=== PATIENT | female | born 1970 | race American Indian/Alaskan Native ===

== ENCOUNTER 2019-08-03 03:43 | Emergency (ER) | payer MEDICAID ==
[2019-08-03 04:03] VITALS: BP 112/53
--- NOTE | 2019-08-03 04:50 | Emergency Department Report ---
- General Chief complaint: Skin/Abscess/Foreign Body Stated complaint: BOIL ON VAG AREA/PAIN Time Seen by Provider: 08/03/19 04:26 Source: patient Mode of arrival: Ambulatory Limitations: No Limitations - History of Present Illness Initial comments: patient is a 49-year-old female presents emergency room with complaints of a boil to the pubic area that began 4 days ago. She states that 4 days ago she was shaving and accidentally cut herself and then began to form a boil in the area. She denies any drainage. She states she has been using warm compresses without much relief. She denies any fever, vomiting, diarrhea. She denies any past medical history or allergies medications. She states that she went through menopause. - Related Data Previous Rx's Medication Instructions Recorded Last Taken Type HYDROcodone/APAP 5-325 [[place] 1 each PO Q6HR PRN #20 tablet 07/07/14 Unknown Rx 5-325 mg TAB] Cyclobenzaprine [Flexeril 10mg] 10 mg PO Q8H PRN #21 tablet 09/01/14 Unknown Rx HYDROcodone/APAP 5-325 [[place] 1 each PO Q6HR PRN #20 tablet 09/01/14 Unknown Rx 5-325 mg TAB] Acetaminophen/Codeine [Tylenol 1 tab PO Q6H PRN #10 tab 08/03/19 Unknown Rx /Codeine # 3 tab] Fluconazole [Diflucan TAB] 150 mg PO ONCE #1 tablet 08/03/19 Unknown Rx Sulfamethoxazole/Trimethoprim 2 each PO BID 7 Days #28 tablet 08/03/19 Unknown Rx [Bactrim DS TAB] Allergies Allergy/AdvReac Type Severity Reaction Status Date / Time No Known Allergies Allergy Unverified 07/07/14 14:38 Abscess Boil HPI - HPI Chief Complaint: Skin/Abscess/Foreign Body Stated Complaint: BOIL ON VAG AREA/PAIN Time Seen by Provider: 08/03/19 04:26 Home Medications: Previous Rx's Medication Instructions Recorded Last Taken Type HYDROcodone/APAP 5-325 [[place] 1 each PO Q6HR PRN #20 tablet 07/07/14 Unknown Rx 5-325 mg TAB] Cyclobenzaprine [Flexeril 10mg] 10 mg PO Q8H PRN #21 tablet 09/01/14 Unknown Rx HYDROcodone/APAP 5-325 [[place] 1 each PO Q6HR PRN #20 tablet 09/01/14 Unknown Rx 5-325 mg TAB] Acetaminophen/Codeine [Tylenol 1 tab PO Q6H PRN #10 tab 08/03/19 Unknown Rx /Codeine # 3 tab] Fluconazole [Diflucan TAB] 150 mg PO ONCE #1 tablet 08/03/19 Unknown Rx Sulfamethoxazole/Trimethoprim 2 each PO BID 7 Days #28 tablet 08/03/19 Unknown Rx [Bactrim DS TAB] Allergies/Adverse Reactions: Allergies Allergy/AdvReac Type Severity Reaction Status Date / Time No Known Allergies Allergy Unverified 07/07/14 14:38 ED Review of Systems ROS: Stated complaint: BOIL ON VAG AREA/PAIN Other details as noted in HPI Comment: All other systems reviewed and negative ED Past Medical Hx - Past Medical History Previous Medical History?: No - Surgical History Past Surgical History?: Yes Additional Surgical History: . tubal ligation - Social History Smoking Status: Former Smoker Substance Use Type: None - Medications Home Medications: Home Medications Medication Instructions Recorded Confirmed Last Taken Type HYDROcodone/APAP 5-325 [[place] 1 each PO Q6HR PRN #20 tablet 07/07/14 Unknown Rx 5-325 mg TAB] Cyclobenzaprine [Flexeril 10mg] 10 mg PO Q8H PRN #21 tablet 09/01/14 Unknown Rx HYDROcodone/APAP 5-325 [[place] 1 each PO Q6HR PRN #20 tablet 09/01/14 Unknown Rx 5-325 mg TAB] Acetaminophen/Codeine [Tylenol 1 tab PO Q6H PRN #10 tab 08/03/19 Unknown Rx /Codeine # 3 tab] Fluconazole [Diflucan TAB] 150 mg PO ONCE #1 tablet 08/03/19 Unknown Rx Sulfamethoxazole/Trimethoprim 2 each PO BID 7 Days #28 tablet 08/03/19 Unknown Rx [Bactrim DS TAB] ED Physical Exam - General Limitations: No Limitations General appearance: alert, in no apparent distress - Head Head exam: Present: atraumatic, normocephalic - Eye Eye exam: Present: normal appearance - ENT ENT exam: Present: mucous membranes moist - Respiratory Respiratory exam: Present: normal lung sounds bilaterally. Absent: respiratory distress, wheezes, rales, rhonchi, stridor, chest wall tenderness, accessory muscle use, decreased breath sounds, prolonged expiratory - Cardiovascular Cardiovascular Exam: Present: regular rate, normal rhythm, normal heart sounds. Absent: systolic murmur, diastolic murmur, rubs, gallop - External exam: Present: other (5 cm area of induration, erythema, increased warmth to the right side of the mons pubis with a 0.5 cm abrasion, there is no fluctuance, no drainage, not able to manually express draiange, no blistering, no necrosis, no streaking of the skin, sec accountant: KAREN Chowdary) - Neurological Exam Neurological exam: Present: alert, oriented X3 - Psychiatric Psychiatric exam: Present: normal affect, normal mood - Skin Skin exam: Present: warm, dry ED Course Vital Signs 08/03/19 03:53 Temperature 98.7 F Pulse Rate 81 Respiratory 18 Rate Blood Pressure 112/53 O2 Sat by Pulse 99 Oximetry ED Medical Decision Making - Medical Decision Making patient is a 49-year-old female presents emergency room with complaints of a boil to the pubic area that began 4 days ago. She states that 4 days ago she was shaving and accidentally cut herself and then began to form a boil in the area. She denies any drainage. She states she has been using warm compresses without much relief. She denies any fever, vomiting, diarrhea. She denies any past medical history or allergies medications. She states that she went through menopause. vitals are normal. on exam: 5 cm area of induration, erythema, increased warmth to the right side of the mons pubis with a 0.5 cm abrasion, there is no fluctuance, no drainage, not able to manually express draiange, no blistering, no necrosis, no streaking of the skin, sec accountant: KAREN Chowdary. There is no drainable abscess at this time, examination consistent with cellulitis with indurated skin. pt given prescription for Bactrim and Tylenol with codeine. Patient requested a prescription for Diflucan due to antibiotic use to prevent yeast infection. advised pt please take medication as prescribed. Do not drive or operate heavy machinery while taking pain medication. Please use warm compresses 2-3 times a day. Please follow-up with your primary care doctor in the next 2-3 days to have the area reexamined. There is no drainable abscess at this time but if antibiotics do not improve the area and the area starts to become larger or draining may have to have a drainage procedure performed. Return to the emergency room for any new or worsening symptoms. - Differential Diagnosis cellulitis, folliculitis, abscess, carbuncle, sebaceous cyst, bartholins Critical care attestation.: If time is entered above; I have spent that time in minutes in the direct care of this critically ill patient, excluding procedure time. ED Disposition Clinical Impression: Cellulitis Qualifiers: Site of cellulitis: trunk Site of cellulitis of trunk: groin Qualified Code(s): L03.314 - Cellulitis of groin Disposition: - TO HOME OR SELFCARE Is pt being admited?: No Does the pt Need Aspirin: No Condition: Stable Instructions: Cellulitis (ED) Additional Instructions: please take medication as prescribed. Do not drive or operate heavy machinery while taking pain medication. Please use warm compresses 2-3 times a day. Please follow-up with your primary care doctor in the next 2-3 days to have the area reexamined. There is no drainable abscess at this time but if antibiotics do not improve the area and the area starts to become larger or draining may have to have a drainage procedure performed. Return to the emergency room for any new or worsening symptoms. Prescriptions: Sulfamethoxazole/Trimethoprim [Bactrim DS TAB] 2 each PO BID 7 Days #28 tablet Fluconazole [Diflucan TAB] 150 mg PO ONCE #1 tablet Acetaminophen/Codeine [Tylenol /Codeine # 3 tab] 1 tab PO Q6H PRN #10 tab PRN Reason: Pain , Severe (7-10) Referrals: your, primary care doctor [Other] - 2-3 Days Time of Disposition: 05:03 Print Language: KITTITIAN
[2019-08-03] MEDS ORDERED: LIDOCAINE-MPF (1%) 10 MG/1 ML VIAL 5 ML INFILTRATI ONE (04:51)
== END 2019-08-03 05:38 | disposition home or self-care (01) ==
LOC: ED 03:43
DX: L03.818 Cellulitis of other sites (principal); Z79.899 Other long term (current) drug therapy; Z98.51 Tubal ligation status; Z87.891 Personal history of nicotine dependence